=== PATIENT | male | born 2000 | race Caucasian/White ===

== ENCOUNTER 2022-11-15 19:07 | Emergency (ER) | payer OTHER ==
[2022-11-15] MEDS ORDERED: Sodium Chloride 0.9% 1,000 ML IV ONE (19:09)
[2022-11-15] MEDS ORDERED: HYDROmorphone 1 MG/ML Syringe IVPUSH ONE ×2 (19:10→20:28)
[2022-11-15] MEDS ORDERED: Ondansetron 4 MG/2 ML SDV IVPUSH ONE (19:10)
[2022-11-15] MEDS ORDERED: Ondansetron 4 MG/2 ML SDV ONE (19:11)
[2022-11-15] MEDS ORDERED: Sodium Chloride 0.9% 10 ML Syringe FLUSH PRN (19:16)
[2022-11-15] MEDS ORDERED: Lidocaine 1% 5 ML VIAL ONE ×2 (19:34→20:23)
[2022-11-15] MEDS ORDERED: cefTRIAXone 1 GM in Sodium Chloride 0.9% 100 ML IV SCH (19:45)
[2022-11-15] MEDS ORDERED: cefTRIAXone 1 GM Vial ONE (19:56)
[2022-11-15] MEDS ORDERED: Acetaminophen/HYDROcodone 325-5 MG Tab PO PRN (21:29)
[2022-11-15] MEDS ORDERED: Take Home: Acetaminophen/HYDROcodone 325-5 MG, 5 Tab Pack PO ONE (21:31)
[2022-11-15] MEDS ORDERED: Take Home: Cephalexin 500 MG Cap, 6 Cap Pack PO ONE (21:31)
[2022-11-15 22:46] VITALS: BP 157/92; PULSE 80
== END 2022-11-15 22:00 | disposition home or self-care (01) ==
LOC: LL.ED 19:07
DX: S66.922A Laceration of unspecified muscle, fascia and tendon at wrist and hand level, left hand, initial encounter (principal); F17.210 Nicotine dependence, cigarettes, uncomplicated; W31.89XA Contact with other specified machinery, initial encounter; Y92.79 Other farm location as the place of occurrence of the external cause; Y99.0 Civilian activity done for income or pay
CPT/HCPCS: 12004; 73120-LT; 96361; 96372; 96374; 96375; 96376; 99283; 99283-25; A9270-GY; J0696; J1170; J2405; J3490; J7030